=== PATIENT | male | born 1975 | race Caucasian/White ===

== ENCOUNTER 2022-03-06 03:08 | Emergency (ER) | payer MEDICAID ==
[2022-03-06] MEDS ORDERED: IBUPROFEN 800 MG TABLET PO ONE (03:45)
[2022-03-06] MEDS ORDERED: IBUPROFEN 800 MG TABLET ONE (03:48)
[2022-03-06 05:13] VITALS: BP_SYST 133
[2022-03-06 06:21] VITALS: BP_SYST 128
== END 2022-03-06 06:22 | disposition home or self-care (01) ==
LOC: SED 03:08
DX: M79.10 Myalgia, unspecified site (principal); F41.9 Anxiety disorder, unspecified
CPT/HCPCS: 99283

== ENCOUNTER 2022-03-07 19:45 | Emergency (ER) | payer MEDICAID ==
[~2022-03-07] VITALS: Ht 177.8 cm; Wt 77.1 kg
[2022-03-07 21:20] VITALS: BP_SYST 142
== END 2022-03-07 22:00 | disposition left against medical advice (07) ==
LOC: SED 19:45
DX: Z00.00 Encounter for general adult medical examination without abnormal findings (principal); Z53.21 Procedure and treatment not carried out due to patient leaving prior to being seen by health care provider